=== PATIENT | male | born 1950 | race Caucasian/White ===

== ENCOUNTER 2017-02-08 06:36 | Day surgery (SDC) | payer MEDICARE ==
[2017-02-03 12:06] VITALS: BMI 25.7
[~2017-02-08 06:36] MED LIST: Ciprofloxacin 0.3% OPTH SOLN OS SCH; Cyclopentolate 1% Opth (2 ml) OS SCH; Flurbiprofen 0.03% Opht SOLN OS SCH; Lactated Ringer's 500 ML IV ONE; Phenylephrine 2.5% Opht Soln OS SCH; Tropicamide 1% Opht SOLUTION OS SCH
[2017-02-08] MEDS ORDERED: Tetracaine 0.5% Ophth (OR ONLY) ONE (07:32)
[2017-02-08] MEDS ORDERED: Carbachol 0.01% IO ONE (07:32)
[2017-02-08] MEDS ORDERED: Povidone Iodine Ophthalmic 5% Soln ONE (07:32)
[2017-02-08] MEDS ORDERED: Tobramycin/Dexamethasone (Tobradex) Opth Sol (2.5 ml) ONE (07:32)
[2017-02-08] MEDS ORDERED: Chondroitin/Hyaluronate Opth Syringe KIT (0.55 ml-0.5 ml) IO ONE (07:33)
[2017-02-08] MEDS ORDERED: Tobramycin/Dexamethasone OPHT OINT ONE (07:33)
[2017-02-08] MEDS ORDERED: Hyaluronidase Human, Recombi 150 U/ML VIAL ONE (07:33)
[2017-02-08] MEDS ORDERED: Lidocaine 2% Inj (20ml) ONE (07:33)
[2017-02-08] MEDS ORDERED: Lactated Ringer's 1,000 ML IV ONE (07:53)
[2017-02-08] MEDS ORDERED: Propofol 10 mg/ml Inj (20 ML) ONE (08:57)
[2017-02-08 09:49] VITALS: O2SAT 95
[2017-02-08 09:58] VITALS: RESP 20
[2017-02-08 10:23] VITALS: BP 121/62; PULSE 74; TEMP 97.6
--- NOTE | 2017-02-11 21:19 | OP ---
PROCEDURE DATE: 02/08/2017 PREOPERATIVE DIAGNOSIS: CATARACT LEFT EYE. POSTOPERATIVE DIAGNOSIS: CATARACT LEFT EYE. OPERATIVE PROCEDURE: CATARACT EXTRACTION WITH IMPLANT LEFT EYE. ANESTHESIA TYPE: LOCAL, STAND-BY. ANESTHESIOLOGIST: COMPLICATIONS: NONE. PROCEDURE: Local anesthesia was achieved using a mixture of 1% lidocaine and Amphadase. The patient was then prepped and draped in the usual sterile fashion for ophthalmic surgery. Betadin e drops were placed into the eye. A lid speculum was used and a sideport incision was made using a 1 5 degree blade. Viscoelastic was used to fill the anterior chamber and a 2.7 millimeter slit blade w as used to create a surgical opening. Additional viscoelastic was placed into the eye and a capsulor rhexis was performed. Hydrodissection and delineation were then carried out. Phacoemulsification of the nucleus was performed with ease and cortical cleanup was achieved without difficulty. The capsul ar bag was refilled using viscoelastic and a posterior chamber lens was inserted through the existing wound and placed into the capsular bag and easily centered. All viscoelastic was then aspirated from the eye and Miochol was instilled for good symmetric pupilla ry constriction. The sideport wound was hydrated as necessary and a good watertight closure was obse rved at the conclusion of the case. A TobraDex soaked collagen shield was then placed over the eye. The lid speculum was removed. TobraDex ointment was placed onto the eye and a patch and shield were placed. The patient tolerated the procedure well. Hugh Vaca MD cc: [id number] TT: 02/11/2017 21:18:16 meenu
== END 2017-02-08 10:23 | disposition home or self-care (01) ==
LOC: C.SDS 06:36
PROVIDERS: ATTEND Ophthalmology
DX: H25.12 Age-related nuclear cataract, left eye (principal)
CPT/HCPCS: 66984; J2704; J3470; J7120; V2632

== ENCOUNTER 2017-07-20 07:17 | Emergency (ER) | payer MEDICARE ==
[2017-07-20 07:17] VITALS: BMI 25.7
[2017-07-20 07:31] VITALS: RESP 18; TEMP 97.4; O2SAT 98
[2017-07-20] MEDS ORDERED: Amoxicillin-Clav 875-125 mg Tab PO STA (07:44)
--- NOTE | 2017-07-20 07:45 | C.PDOC ---
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 Patient otherwise denies new weakness, new numbness, or other associated symptoms. Time Seen by Provider: 07/20/17 07:23 Chief Complaint (Nursing): Abnormal Skin Integrity History Per: Patient History/Exam Limitations: no limitations Onset/Duration Of Symptoms: Days Current Symptoms Are (Timing): Still Present Location Of Injury: Right: Hand Quality Of Symptoms: Painful Recent travel outside of the [place]: No Past Medical History Reviewed: Historical Data, Nursing Documentation, Vital Signs Vital Signs: Last Vital Signs Temp 97.4 F L 07/20/17 07:27 Pulse 64 07/20/17 09:42 Resp 18 07/20/17 09:42 BP 117/74 07/20/17 09:42 Pulse Ox 98 07/20/17 09:47 - Medical History PMH: No Chronic Diseases Family History: States: Unknown Family Hx Review Of Systems Except As Marked, All Systems Reviewed And Found Negative. Constitutional: Negative for: Fever, Chills Musculoskeletal: Positive for: Hand Pain (right 2nd digit) Skin: Negative for: Rash Neurological: Negative for: Weakness, Numbness Physical Exam - Physical Exam Appears: Non-toxic, No Acute Distress Skin: Normal Color, Warm, Dry Head: Atraumatic, Normacephalic Extremity: Normal ROM, Capillary Refill (< 2 sec.), Other (distal right 2nd digit +tenderness, laceration. questonable deformity to distal end. ) Extremity: Bilateral: Normal Color And Temperature Pulses: Left Radial: Normal, Right Radial: Normal Neurological/Psych: Oriented x3, Normal Motor, Normal Sensation ED Course And Treatment O2 Sat by Pulse Oximetry: 98 (RA) Pulse Ox Interpretation: Normal - Other Rad Xray R 2nd Digit X-Ray: Read By Radiologist Interpretation: IMPRESSION: Mildly displaced oblique fracture of the 2nd distal phalanx. Associated soft tissue swelling. Progress Note: X-ray 2nd digit, tetanus given. Reassessment Condition: Improved Laceration - Laceration Repair No standard instances Wound Length (In cm): 4 cm Description Of Wound: Irregular Wound Cleansed With: Betadine Anesthesia: Lidocaine 1% Wound Examination: Irrigated With Saline, No FB With Wound Exploration Wound Closure: Suture Suture Technique And Material Used: Interrupted Wound Complexity: Simple Medical Decision Making Medical Decision Making: Wound clean dressing applied, aluminum splint applied to affected finger Disposition Counseled Patient/Family Regarding: Studies Performed, Diagnosis, Need For Followup, Rx Given - Disposition Referrals: [facility] [Outside] [facility] [place] [Outside] Disposition: HOME/ ROUTINE Disposition Time: 09:40 Condition: STABLE Additional Instructions: Follow up with ortho clinic for further evaluation Suture removal in 10 days Keep splint in place Prescriptions: Amoxicillin/Clavulanate [Augmentin 875 MG-125 MG] 1 tab PO BID #14 tab Naproxen [Naprosyn] 1 tab PO BID PRN #25 tab PRN Reason: Pain Instructions: Finger Fracture (ED), Finger Laceration (ED) Forms: [employer] (Croatian), Work Excuse Print Language: CROATIAN - POA Present On Arrival: None - Clinical Impression Clinical Impression: Finger fracture, right, Finger laceration, Laceration - 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 - Scribe Statement The provider has reviewed the documentation as recorded by the Scribe SM All medical record entries made by the Scribe were at my direction and personally dictated by me. I have reviewed the chart and agree that the record accurately reflects my personal performance of the history, physical exam, medical decision making, and the department course for this patient. I have also personally directed, reviewed, and agree with the discharge instructions and disposition.
[2017-07-20] MEDS ORDERED: Lidocaine 1% Inj (20ml) ONE (07:52)
[2017-07-20] MEDS ORDERED: Amoxicillin-Clav 875-125 mg Tab PO ONE (07:53)
--- NOTE | 2017-07-20 08:10 | RAD ---
PROCEDURE: Right Hand Radiographs. HISTORY: trauma COMPARISON: None available. FINDINGS: BONES: Mildly displaced oblique fracture of the 2nd distal phalanx. The remainder the visualized osseous structures appear intact. Degenerative changes. JOINTS: No dislocation. SOFT TISSUES: Soft tissue swelling. No evidence of radiopaque foreign body. OTHER FINDINGS: None. IMPRESSION: Mildly displaced oblique fracture of the 2nd distal phalanx. Associated soft tissue swelling.
[2017-07-20 09:42] VITALS: BP 117/74; PULSE 64
== END 2017-07-20 09:50 | disposition home or self-care (01) ==
LOC: C.ER 07:17
DX: S62.630A Displaced fracture of distal phalanx of right index finger, initial encounter for closed fracture (principal); S61.210A Laceration without foreign body of right index finger without damage to nail, initial encounter; X58.XXXA Exposure to other specified factors, initial encounter; Y93.89 Activity, other specified; Y92.89 Other specified places as the place of occurrence of the external cause; Y99.0 Civilian activity done for income or pay; Z23 Encounter for immunization

== ENCOUNTER 2017-08-03 12:27 | Emergency (ER) | payer MEDICARE ==
[2017-08-03 12:41] VITALS: BMI 28.2
[2017-08-03 13:26] VITALS: BP 101/62; PULSE 86; RESP 16; TEMP 97.9; O2SAT 98
[2017-08-03] MEDS ORDERED: Bacitracin 500 Units/gm Oint Foilpak UD ONE (14:09)
--- NOTE | 2017-08-03 14:13 | C.PDOC ---
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 Limitations: language barrier Onset/Duration Of Symptoms: Days Ago, Laceration Current Symptoms Are (Timing): Better Location Of Injury: Right: Hand (index finger) Quality Of Symptoms: denies: Painful, Draining Severity: Moderate Additional History Per: Prior Records Past Medical History Reviewed: Historical Data, Nursing Documentation, Vital Signs Vital Signs: Last Vital Signs Temp 97.9 F 08/03/17 13:25 Pulse 86 08/03/17 13:25 Resp 16 08/03/17 13:25 BP 101/62 08/03/17 13:25 Pulse Ox 98 08/03/17 13:25 - Medical History PMH: No Chronic Diseases Family History: States: Unknown Family Hx - Social History Hx Alcohol Use: Yes Hx Substance Use: No - Immunization History Hx Tetanus Toxoid Vaccination: No Hx Influenza Vaccination: No Hx Pneumococcal Vaccination: No Review Of Systems Except As Marked, All Systems Reviewed And Found Negative. Constitutional: Negative for: Fever Skin: Negative for: Rash Neurological: Negative for: Weakness, Numbness Physical Exam - Physical Exam Appears: Non-toxic, No Acute Distress Skin: Warm, Dry Head: Atraumatic, Normacephalic Eye(s): bilateral: PERRL, EOMI Neck: Normal ROM, Supple Extremity: Normal ROM, Other (right index finger healing lacerations closed with sutures. ) Pulses: Right Radial: Normal Neurological/Psych: Oriented x3, Normal Motor, Normal Sensation ED Course And Treatment O2 Sat by Pulse Oximetry: 98 Pulse Ox Interpretation: Normal Progress Note: Sutures were removed without diffuculty, however mild purulent discharge noticed. Reassessment Condition: Improved Disposition Counseled Patient/Family Regarding: Diagnosis, Need For Followup, Rx Given - Disposition Referrals: Nadya Ramirez MD [Staff Provider] - Disposition: HOME/ ROUTINE Disposition Time: 14:13 Condition: STABLE Additional Instructions: Follow up with a Hand specialist within 1 week for further evaluation and treatment. Return to the ER if you develop fever, worsening of symptoms or if you have any other concerns. Prescriptions: Sulfamethoxazole/Trimethoprim [Bactrim DS 800 mg-160 mg] 1 tab PO BID #14 tab Instructions: Stitches Removal (ED) Forms: [employer] (Algerian) Print Language: URUGUAYAN - Clinical Impression Clinical Impression: Removal of suture
== END 2017-08-03 14:21 | disposition home or self-care (01) ==
LOC: C.ER 12:27
DX: Z48.02 Encounter for removal of sutures (principal)

== ENCOUNTER 2017-08-15 13:29 | Emergency (ER) | payer MEDICARE ==
[2017-08-15 13:29] VITALS: BMI 28.2
[2017-08-15 14:17] VITALS: RESP 20; TEMP 97.3
[2017-08-15] MEDS ORDERED: Bacitracin 500 Units/gm Oint Foilpak UD ONE (15:33)
[2017-08-15 15:43] VITALS: BP 116/72; PULSE 88; O2SAT 96
--- NOTE | 2017-08-16 10:03 | C.PDOC ---
History Of Present Illness 66 year old male presents to the ED for evaluation of a wound to his right 2nd digit which he sustained several weeks ago. Patient states he was evaluated and had sutures placed and removed from the area. Patient feels like the area has not healed properly and presents to the ED for further evaluation. Patient has not followed up with his PMD. He denies fever, chills, wound discharge. Chief Complaint (Nursing): Abnormal Skin Integrity History Per: Patient History/Exam Limitations: no limitations Onset/Duration Of Symptoms: Days Current Symptoms Are (Timing): Still Present Location Of Injury: Right: Hand (2nd digit ) Quality Of Symptoms: denies: Draining Additional History Per: Patient Past Medical History Reviewed: Historical Data, Nursing Documentation, Vital Signs Vital Signs: Last Vital Signs Temp 97.3 F L 08/15/17 14:13 Pulse 88 08/15/17 15:42 Resp 20 08/15/17 15:42 BP 116/72 08/15/17 15:42 Pulse Ox 96 08/16/17 10:05 - Medical History PMH: No Chronic Diseases Family History: States: Unknown Family Hx - Social History Hx Alcohol Use: Yes Hx Substance Use: No - Immunization History Hx Tetanus Toxoid Vaccination: No Hx Influenza Vaccination: No Hx Pneumococcal Vaccination: No Review Of Systems Constitutional: Negative for: Fever, Chills Skin: Positive for: Other (wound to right hand 2nd digit ) Physical Exam - Physical Exam Appears: Non-toxic, No Acute Distress Skin: Warm, Dry, Ecchymosis (mild, to right 2nd digit with small amount of serous fluid expressed ) Extremity: Normal ROM, Capillary Refill (less than 2 seconds ) Neurological/Psych: Oriented x3, Normal Speech, Normal Cognition ED Course And Treatment O2 Sat by Pulse Oximetry: 96 (on RA) Pulse Ox Interpretation: Normal Medical Decision Making Medical Decision Making: wound culture obtained and sent to lab for further evaluation. Bandage applied to wound. Patient is advised to follow up with hand specialist within 1-2 days for further evaluation. Disposition - Disposition Referrals: Nadya Ramirez MD [Staff Provider] - Disposition: HOME/ ROUTINE Disposition Time: 15:20 Condition: GOOD Additional Instructions: Thank you for letting us take care of you today. The emergency medical care you received today was directed at your acute symptoms. If you were prescribed any medication, please fill it and take as directed. It may take several days for your symptoms to resolve. Return to the Emergency Department if your symptoms worsen, do not improve, or if you have any other problems. Please contact your doctor or call one of the physicians/clinics you have been referred to that are listed on the Patient Visit Information form that is included in your discharge packet. Bring any paperwork you were given at discharge with you along with any medications you are taking to your follow up visit. Our treatment cannot replace ongoing medical care by a primary care provider (PCP) outside of the emergency department. Thank you for allowing the [facility] team to be part of your care today. Follow up with Dr. Ramirez (hand doctor) in 3-4 days for re-evaluation and further management. Keep wound clean and dry at all times. Prescriptions: Clindamycin [Cleocin] 300 mg PO Q8 #21 cap Instructions: Acute Wound Care (ED) Forms: [employer] (Faroese) - Clinical Impression Clinical Impression: Abscess - Scribe Statement The provider has reviewed the documentation as recorded by the Scribe (Luli Faith) Provider Attestation: All medical record entries made by the Scribe were at my direction and personally dictated by me. I have reviewed the chart and agree that the record accurately reflects my personal performance of the history, physical exam, medical decision making, and the department course for this patient. I have also personally directed, reviewed, and agree with the discharge instructions and disposition.
== END 2017-08-15 15:43 | disposition home or self-care (01) ==
LOC: C.ER 13:29
DX: L02.511 Cutaneous abscess of right hand (principal)